=== PATIENT | female | born 1965 | race African-American/Black ===

== ENCOUNTER 2019-07-20 01:52 | Emergency (ER) | payer OTHER ==
[~2019-07-20] VITALS: Ht 172.7 cm; Wt 77.1 kg
--- NOTE | 2019-07-20 02:03 | NUR ---
Dr. Curtis at bedside for MSE.
[2019-07-20 02:32] LABS: BASOPHILS % (AUTO) 0.4 % (0.0-2.0); EOSINOPHILS # (AUTO) 0.1 K/uL (0.0-0.7); EOSINOPHILS % (AUTO) 1.5 % (0.0-7.0); HEMATOCRIT 42.6 % (31.2-41.9); LYMPHOCYTES % (AUTO) 33.7 % (20.5-51.5); MEAN CORPUSCULAR HEMOGLOBIN 28.4 uug (24.7-32.8); MEAN CORPUSCULAR HGB CONC 33 g/dL (32.3-35.6); MEAN CORPUSCULAR VOLUME 86.2 fL (75.5-95.3); MONOCYTES # (AUTO) 0.4 K/uL (2.0-10.0); MONOCYTES % (AUTO) 6.3 % (0.0-11.0); NEUTROPHILS # (AUTO) 3.4 K/uL (1.8-8.9); NEUTROPHILS % (AUTO) 58.1 % (38.5-71.5); PLATELET COUNT (AUTO) 255 K/uL (179-408); RED BLOOD CELL COUNT(AUTO) 4.94 MIL/uL (3.63-4.92); WHITE BLOOD COUNT (AUTO) 5.9 K/uL (3.8-11.8)
[2019-07-20 02:43] LABS: POTASSIUM 4.1 mmol/L (3.5-5.1)
--- NOTE | 2019-07-20 03:04 | NUR ---
DR PAK AT BEDSIDE MADE AWARE PATIENT REFUSED CT HEAD
--- NOTE | 2019-07-20 03:12 | NUR ---
Patient discharged to home in stable conditon. Written and verbal after care instructions given. Patient verbalizes understanding of instructions.
[2019-07-20 03:13] VITALS: BP 131/73
== END 2019-07-20 03:15 | disposition home or self-care (01) ==
LOC: ER 01:58
DX: H93.13 Tinnitus, bilateral (principal); R20.2 Paresthesia of skin
CPT/HCPCS: 36415; 70030-TC; 85025; 93005; A4663